=== PATIENT | female | born 1975 | race African-American/Black ===

== ENCOUNTER 2019-03-31 16:22 | Inpatient (IN) | payer OTHER ==
[~2019-03-31] VITALS: Ht 167.6 cm; Wt 92.5 kg
[~2019-03-31 16:22] MED LIST: AMLO10TA80 PO; LISI40TA4 PO
[2019-03-31] MEDS ORDERED: LORAZEPAM 2MG/ML CPJ ONE ×2 (16:28→16:47)
[2019-03-31] MEDS ORDERED: LORAZEPAM 2MG/ML CPJ IV ONE (16:45)
[2019-03-31] MEDS ORDERED: LEVETIRACETAM 500MG PREMIX 100 ML IV ONE ×2 (16:45)
[2019-03-31 17:22] LABS: HEMATOCRIT. 33.6 % (36.0-48.0); HEMOGLOBIN. 9.6 g/dL (12.0-16.0); MEAN CORPUSCULAR HEMOGLOBIN 17.5 pg (28.0-32.0); MEAN CORPUSCULAR VOLUME 61.1 fL (81.0-99.0); MEAN PLATELET VOLUME 8.5 fl (7.4-10.4); PLATELET 465 x1000/uL (130-400); RED CELL DISTRIBUTION WIDTH 22.1 % (11.6-14.6)
[2019-03-31 17:29] LABS: CHLORIDE 110 mEq/L (98-107)
[2019-03-31] MEDS ORDERED: DIPHENHYDRAMINE 50MG/ML VIAL IV ONE (17:30)
[2019-03-31 17:33] LABS: ETHANOL BLOOD 224 mg/dL
[2019-03-31 17:42] LABS: PLATELET ESTIMATE INCREASED
[2019-03-31 19:32] LABS: HCG SCREEN NEGATIVE
[2019-03-31] MEDS ORDERED: GUAIFENESIN 200MG/10ML SUGAR FREE UDC PO PRN (19:45)
[2019-03-31] MEDS ORDERED: LORAZEPAM 2MG/ML CPJ IV PRN (19:45)
[2019-03-31] MEDS ORDERED: IPRATROPIUM/ALBUTEROL 0.5-3(2.5)MG/3ML NEB HHN PRN (19:45)
[2019-03-31] MEDS ORDERED: ACETAMINOPHEN 325MG TABLET PO PRN (19:45)
[2019-03-31 20:01] LABS: PHOSPHORUS 3.1 mg/dL (2.5-4.9)
[2019-03-31] MEDS: DIPHENHYDRAMINE 50MG/ML VIAL IV PRN (21:33)
[2019-03-31] MEDS: ONDANSETRON HCL 4MG/2ML INJ IV PRN (21:33)
[2019-03-31] MEDS: SODIUM CHLORIDE 0.9% 1,000 ML IV SCH (21:49)
[2019-03-31] MEDS: ENOXAPARIN 40MG/0.4ML SYR SUBCUT SCH (21:53)
[2019-04-01] VITALS (11 sets, daily range): BP systolic 133–157; BP diastolic 61–104
[2019-04-01] MEDS: DIPHENHYDRAMINE 50MG/ML VIAL IV PRN ×2 (01:42→05:59)
[2019-04-01 03:10] LABS: CREATINE KINASE MB FRACTION 2.5 ng/mL (0.5-3.6)
[2019-04-01] MEDS: CLONIDINE 0.1MG TABLET PO PRN ×2 (03:19→22:12)
[2019-04-01] MEDS: ONDANSETRON HCL 4MG/2ML INJ IV PRN (04:20)
[2019-04-01 05:38] LABS: BASOPHILS % 0.4 % (0.0-2.0); HEMATOCRIT. 25.4 % (36.0-48.0); HEMOGLOBIN. 7.5 g/dL (12.0-16.0); LYMPHOCYTES % 35.9 % (20.0-50.0); MEAN CORPUSCULAR HEMOGLOBIN 17.8 pg (28.0-32.0); MEAN CORPUSCULAR VOLUME 60.2 fL (81.0-99.0); MEAN PLATELET VOLUME 9.3 fl (7.4-10.4); MONOCYTES % 8.6 % (2.0-8.0); NEUTROPHILS % 54.1 % (40.0-76.0); PLATELET 352 x1000/uL (130-400); RED BLOOD CELL COUNT 4.22 mill/uL (4.2-5.4); RED CELL DISTRIBUTION WIDTH 21.9 % (11.6-14.6)
[2019-04-01 06:23] LABS: CHLORIDE 113 mEq/L (98-107)
[2019-04-01 06:30] LABS: LDL CHOLESTEROL 35 mg/dL (5-100)
[2019-04-01 06:31] LABS: HDL CHOLESTEROL 53 mg/dL (40-59)
[2019-04-01] MEDS ORDERED: POTASSIUM CHLORIDE 20MEQ TABLET SR PO SCH (06:45)
[2019-04-01] MEDS: BLOOD SUGAR DIAGNOSTIC STRIP TEST SCH ×4 (06:50→21:00)
[2019-04-01] MEDS ORDERED: DEXTROSE 50% WATER 50ML SYRINGE IV PRN (07:00)
[2019-04-01] MEDS: INSULIN LISPRO 100 UNITS/ML SUBCUT SCH ×4 (07:20→21:00)
[2019-04-01] MEDS: SODIUM CHLORIDE 0.9% 1,000 ML IV SCH ×2 (08:10→20:36)
[2019-04-01] MEDS ORDERED: LEVETIRACETAM 500MG PREMIX 100 ML IV SCH ×2 (09:00)
[2019-04-01] MEDS ORDERED: LEVETIRACETAM 500MG TABLET PO SCH (09:23)
[2019-04-01] MEDS ORDERED: PHENOL/SODIUM PHENOLATE 1.4% SRPAY 177ML MM PRN (10:00)
[2019-04-01 11:35] LABS: CLARITY URINE CLEAR (CLEAR); COLOR URINE YELLOW (YELLOW); KETONES URINE NEGATIVE (NEGATIVE); LEUKOCYTE ESTERASE URINE NEGATIVE (NEGATIVE); NITRITE URINE NEGATIVE (NEGATIVE); OCCULT BLOOD URINE NEGATIVE (NEGATIVE); PH URINE 6.5 (4.5-8.0); PROTEIN URINE TRACE (NEGATIVE); SPECIFIC GRAVITY URINE 1.029 (1.005-1.030)
[2019-04-01 11:37] LABS: UCG SCREEN NEGATIVE
[2019-04-01 11:47] LABS: *AMPHETAMINES SCREEN URINE NEGATIVE (NEGATIVE); *BARBITURATES SCREEN URINE NEGATIVE (NEGATIVE); METHADONE URINE SCREEN NEGATIVE (NEGATIVE)
[2019-04-01 11:48] LABS: CANNABINOID URINE SCREEN NEGATIVE (NEGATIVE); OPIATES URINE SCREEN NEGATIVE (NEGATIVE); PHENCYCLIDINE URINE SCREEN NEGATIVE (NEGATIVE)
[2019-04-01 12:04] LABS: *COCAINE SCREEN URINE NEGATIVE (NEGATIVE)
[2019-04-01 12:10] LABS: *BENZODIAZEPINES SCREEN URINE PRESUMTIVE POSITIVE (NEGATIVE)
[2019-04-01] MEDS ORDERED: LEVETIRACETAM 500MG/5ML CUP PO NR (13:00)
[2019-04-01] MEDS: LORAZEPAM 2MG/ML CPJ IM PRN ×2 (13:00→22:13)
[2019-04-01] MEDS ORDERED: DIPHENHYDRAMINE 25MG CAPSULE PO PRN (14:45)
[2019-04-01] MEDS ORDERED: DIPHENHYDRAMINE 50MG/ML VIAL IV NR (15:15)
[2019-04-01] MEDS: HYDROCODONE/ACETAMINOPHEN 5/325MG TABLET PO PRN ×3 (15:54→23:37)
[2019-04-01 20:09] LABS: PLATELET ESTIMATE NORMAL
[2019-04-01] MEDS ORDERED: LAMOTRIGINE 25MG TABLET PO SCH (21:00)
[2019-04-01] MEDS ORDERED: LEVETIRACETAM 500MG/5ML CUP PO SCH (21:00)
[2019-04-01] MEDS: ENOXAPARIN 40MG/0.4ML SYR SUBCUT SCH (22:00)
== END 2019-04-01 22:40 | disposition left against medical advice (07) | DRG 53 ==
LOC: ER 16:22 → 3WST 17:07 → ENRESERV 22:00
PROVIDERS: ADMIT Internal Medicine; ATTEND Internal Medicine
DX: G40.901 Epilepsy, unspecified, not intractable, with status epilepticus (principal); S09.90XA Unspecified injury of head, initial encounter; E66.01 Morbid (severe) obesity due to excess calories; R13.10 Dysphagia, unspecified; S22.41XA Multiple fractures of ribs, right side, initial encounter for closed fracture; D64.9 Anemia, unspecified; E11.9 Type 2 diabetes mellitus without complications; I10 Essential (primary) hypertension; W18.39XA Other fall on same level, initial encounter; J45.909 Unspecified asthma, uncomplicated; Z82.49 Family history of ischemic heart disease and other diseases of the circulatory system; Y93.89 Activity, other specified; Y92.89 Other specified places as the place of occurrence of the external cause; Y99.8 Other external cause status; Z88.9 Allergy status to unspecified drugs, medicaments and biological substances; Z88.1 Allergy status to other antibiotic agents; Z88.0 Allergy status to penicillin; Z88.2 Allergy status to sulfonamides; Z88.8 Allergy status to other drugs, medicaments and biological substances; Z91.018 Allergy to other foods; Z79.899 Other long term (current) drug therapy; Z68.32 Body mass index [BMI] 32.0-32.9, adult
CPT/HCPCS: 36415; 71100; 80053; 80061; 80305; 80307; 80320; 80329; 81003; 81025; 82140; 82550; 82553; 82962; 83735; 84100; 84443; 84703; 85025; 93005; 93970; 96365; 96375; 96376; 99291; J1200; J1650; J1953; J2060; J2405; Q0163; G0480

== ENCOUNTER 2019-08-14 18:28 | Emergency (ER) | payer OTHER ==
[~2019-08-14] VITALS: Ht 170.2 cm; Wt 81.0 kg
[2019-08-14] MEDS ORDERED: LORAZEPAM 2MG/ML CPJ IV ONE (18:45)
[2019-08-14] MEDS ORDERED: LORAZEPAM 2MG/ML CPJ ONE (18:48)
[2019-08-14] MEDS ORDERED: SODIUM CHLORIDE 0.9% 1,000 ML IV ONE (20:41)
[2019-08-14] MEDS ORDERED: DIPHENHYDRAMINE 50MG/ML VIAL IV ONE (20:45)
[2019-08-14] MEDS ORDERED: METOCLOPRAMIDE HCL 10MG/2ML VIAL IV ONE (20:45)
[2019-08-14] MEDS ORDERED: LEVETIRACETAM 1000MG/100ML 100 ML IV ONE (20:45)
[2019-08-14 21:13] LABS: CHLORIDE 111 mEq/L (98-107)
[2019-08-14 21:17] LABS: ETHANOL BLOOD 15 mg/dL
[2019-08-14 21:51] LABS: HEMOGLOBIN. 10.4 g/dL (12.0-16.0); MEAN CORPUSCULAR HEMOGLOBIN 24.6 pg (28.0-32.0); MEAN CORPUSCULAR VOLUME 77.9 fL (81.0-99.0); MEAN PLATELET VOLUME 8.8 fl (7.4-10.4); PLATELET 208 x1000/uL (130-400); RED BLOOD CELL COUNT 4.24 mill/uL (4.2-5.4); RED CELL DISTRIBUTION WIDTH 31.8 % (11.6-14.6)
[2019-08-14 22:32] LABS: PLATELET ESTIMATE NORMAL
[2019-08-15 02:13] VITALS: BP 144/88
[2019-08-15] MEDS ORDERED: METO100T16 PO (23:45)
[2019-08-15] MEDS ORDERED: B25 PO (23:45)
[2019-08-15] MEDS ORDERED: CLON0.3T PO (23:45)
[2019-08-15] MEDS ORDERED: OXYC-515 PO (23:45)
[2019-08-15] MEDS ORDERED: KEPP500 PO (23:45)
[2019-08-15] MEDS ORDERED: LAMO50TA3 PO (23:45)
== END 2019-08-15 02:14 | disposition home or self-care (01) ==
LOC: ER 18:28
DX: G40.909 Epilepsy, unspecified, not intractable, without status epilepticus (principal); E11.9 Type 2 diabetes mellitus without complications; I10 Essential (primary) hypertension; F17.200 Nicotine dependence, unspecified, uncomplicated; Z71.6 Tobacco abuse counseling; Z88.0 Allergy status to penicillin; Z88.2 Allergy status to sulfonamides; Z88.6 Allergy status to analgesic agent; Z88.8 Allergy status to other drugs, medicaments and biological substances; Z91.018 Allergy to other foods
CPT/HCPCS: 36415; 70450; 80053; 80320; 82962; 85025; 96365; 96366; 96375; 99284; J1200; J1953; J2060; J2765; J7030; G0480

== ENCOUNTER 2019-08-15 12:05 | Inpatient (IN) | payer OTHER ==
[~2019-08-15] VITALS: Ht 165.1 cm; Wt 96.2 kg
[2019-08-15] MEDS ORDERED: SODIUM CHLORIDE 0.9% 1,000 ML IV ONE (12:27)
[2019-08-15] MEDS ORDERED: ONDANSETRON HCL 4MG/2ML INJ IV STA (12:27)
[2019-08-15] MEDS ORDERED: ACETAMINOPHEN 325MG TABLET PO ONE (12:30)
[2019-08-15 12:55] LABS: BASOPHILS % 0.8 % (0.0-2.0); EOSINOPHILS % 2.1 % (0.0-5.0); HEMATOCRIT. 33.1 % (36.0-48.0); HEMOGLOBIN. 10.5 g/dL (12.0-16.0); LYMPHOCYTES % 34.5 % (20.0-50.0); MEAN CORPUSCULAR HEMOGLOBIN 24.7 pg (28.0-32.0); MEAN PLATELET VOLUME 8.8 fl (7.4-10.4); MONOCYTES % 10.9 % (2.0-8.0); NEUTROPHILS % 51.7 % (40.0-76.0); PLATELET 235 x1000/uL (130-400); RED BLOOD CELL COUNT 4.24 mill/uL (4.2-5.4); RED CELL DISTRIBUTION WIDTH 32.1 % (11.6-14.6)
[2019-08-15 13:03] LABS: CHLORIDE 111 mEq/L (98-107)
[2019-08-15 13:07] LABS: ETHANOL BLOOD < 10 mg/dL
[2019-08-15 13:10] LABS: HCG SCREEN NEGATIVE
[2019-08-15] MEDS ORDERED: DIPHENHYDRAMINE 50MG/ML VIAL IV ONE (13:30)
[2019-08-15 14:19] LABS: PLATELET ESTIMATE NORMAL
[2019-08-15] MEDS ORDERED: LEVETIRACETAM 500MG PREMIX 100 ML IV NR (15:00)
[2019-08-15] MEDS ORDERED: MORPHINE SULFATE 4 MG/ML CPJ (NOT FOR IM USE) IV NR (15:15)
[2019-08-15] MEDS ORDERED: ONDANSETRON HCL 4MG/2ML INJ IV NR (15:15)
[2019-08-15 18:55] LABS: CLARITY URINE CLOUDY (CLEAR); COLOR URINE YELLOW (YELLOW); KETONES URINE TRACE (NEGATIVE); LEUKOCYTE ESTERASE URINE TRACE (NEGATIVE); NITRITE URINE NEGATIVE (NEGATIVE); OCCULT BLOOD URINE 3+ (NEGATIVE); PROTEIN URINE TRACE (NEGATIVE); SPECIFIC GRAVITY URINE 1.024 (1.005-1.030)
[2019-08-15 19:24] LABS: *AMPHETAMINES SCREEN URINE NEGATIVE (NEGATIVE); *BARBITURATES SCREEN URINE NEGATIVE (NEGATIVE); *COCAINE SCREEN URINE NEGATIVE (NEGATIVE); METHADONE URINE SCREEN NEGATIVE (NEGATIVE)
[2019-08-15 19:25] LABS: CANNABINOID URINE SCREEN NEGATIVE (NEGATIVE); PHENCYCLIDINE URINE SCREEN NEGATIVE (NEGATIVE)
[2019-08-15 19:31] LABS: *BENZODIAZEPINES SCREEN URINE PRESUMTIVE POSITIVE (NEGATIVE); OPIATES URINE SCREEN PRESUMTIVE POSITIVE (NEGATIVE)
[2019-08-15] MEDS: ONDANSETRON HCL 4MG/2ML INJ IV PRN (21:41)
[2019-08-15 21:50] VITALS: BP 163/98
[2019-08-15] MEDS ORDERED: ACETAMINOPHEN 325MG TABLET PO PRN (23:00)
[2019-08-15] MEDS ORDERED: HYDROCODONE/ACETAMINOPHEN 5/325MG TABLET PO PRN (23:00)
[2019-08-15] MEDS ORDERED: DOCUSATE SODIUM 100MG CAPSULE PO PRN (23:00)
[2019-08-15] MEDS ORDERED: ONDANSETRON HCL 4MG/2ML INJ IV PRN (23:00)
[2019-08-15] MEDS ORDERED: KEPP500 PO (23:45)
[2019-08-15] MEDS ORDERED: CLON0.3T PO (23:45)
[2019-08-15] MEDS ORDERED: B25 PO (23:45)
[2019-08-15] MEDS ORDERED: OXYC-515 PO (23:45)
[2019-08-15] MEDS ORDERED: LAMO50TA3 PO (23:45)
[2019-08-15] MEDS ORDERED: METO100T16 PO (23:45)
[2019-08-16] VITALS: BP 122/75
[2019-08-16] MEDS ORDERED: CLONIDINE 0.2MG TABLET PO PRN (00:15)
[2019-08-16] MEDS: SODIUM CHLORIDE 0.45% 1,000 ML IV SCH ×2 (01:25→14:48)
[2019-08-16] MEDS: LAMOTRIGINE 25MG TABLET PO SCH ×3 (01:25→21:08)
[2019-08-16] MEDS: DIPHENHYDRAMINE 50MG/ML VIAL IV PRN ×3 (01:45→14:47)
[2019-08-16] MEDS: LEVETIRACETAM 1,000 MG in SODIUM CHLORIDE 0.9% 100 ML IV SCH ×2 (03:26→21:09)
[2019-08-16] MEDS: TRAMADOL 50MG TABLET PO PRN ×2 (03:26→21:55)
[2019-08-16 05:23] LABS: CHLORIDE 110 mEq/L (98-107)
[2019-08-16 05:33] LABS: T4 FREE 0.82 ng/dL (0.76-1.46)
[2019-08-16 06:13] LABS: BASOPHILS % 0.4 % (0.0-2.0); EOSINOPHILS % 2.2 % (0.0-5.0); HEMATOCRIT. 30.8 % (36.0-48.0); HEMOGLOBIN. 9.7 g/dL (12.0-16.0); LYMPHOCYTES % 37.2 % (20.0-50.0); MEAN CORPUSCULAR HEMOGLOBIN 24.7 pg (28.0-32.0); MEAN CORPUSCULAR VOLUME 78.4 fL (81.0-99.0); MONOCYTES % 8.1 % (2.0-8.0); NEUTROPHILS % 52.1 % (40.0-76.0); PLATELET 205 x1000/uL (130-400); RED BLOOD CELL COUNT 3.93 mill/uL (4.2-5.4); RED CELL DISTRIBUTION WIDTH 32.1 % (11.6-14.6)
[2019-08-16 07:50] VITALS: BP 148/92
[2019-08-16] MEDS: LISINOPRIL 20MG TABLET PO SCH (08:46)
[2019-08-16] MEDS: ENOXAPARIN 40MG/0.4ML SYR SUBCUT SCH ×2 (08:46→08:47)
[2019-08-16] MEDS ORDERED: LEVETIRACETAM 500MG TABLET PO SCH (09:00)
[2019-08-16] MEDS ORDERED: METOPROLOL TARTRATE 50MG TABLET PO SCH (09:00)
[2019-08-16 11:40] VITALS: BP 120/77
[2019-08-16 16:06] VITALS: BP 144/86
[2019-08-16] MEDS: FAMOTIDINE 20MG/2ML VIAL IV SCH (16:38)
[2019-08-16 20:08] VITALS: BP 131/84
[2019-08-16] MEDS: HYDRALAZINE HCL 50MG TABLET PO SCH (21:08)
[2019-08-17 00:17] VITALS: BP 121/83
[2019-08-17] MEDS: SODIUM CHLORIDE 0.45% 1,000 ML IV SCH (02:55)
[2019-08-17 04:36] VITALS: BP 128/82
[2019-08-17 08:00] VITALS: BP 136/87
[2019-08-17 08:02] LABS: BASOPHILS % 0.8 % (0.0-2.0); EOSINOPHILS % 1.4 % (0.0-5.0); HEMATOCRIT. 31.4 % (36.0-48.0); HEMOGLOBIN. 9.9 g/dL (12.0-16.0); MEAN CORPUSCULAR HEMOGLOBIN 24.6 pg (28.0-32.0); MEAN CORPUSCULAR VOLUME 78.4 fL (81.0-99.0); MEAN PLATELET VOLUME 8.9 fl (7.4-10.4); MONOCYTES % 4.5 % (2.0-8.0); NEUTROPHILS % 75.3 % (40.0-76.0); PLATELET 189 x1000/uL (130-400); RED CELL DISTRIBUTION WIDTH 31.9 % (11.6-14.6)
[2019-08-17 08:15] LABS: CHLORIDE 107 mEq/L (98-107)
[2019-08-17] MEDS: LISINOPRIL 20MG TABLET PO SCH (09:00)
[2019-08-17] MEDS: LAMOTRIGINE 25MG TABLET PO SCH ×2 (09:47→21:59)
[2019-08-17] MEDS: FAMOTIDINE 20MG/2ML VIAL IV SCH (09:48)
[2019-08-17] MEDS: LEVETIRACETAM 1,000 MG in SODIUM CHLORIDE 0.9% 100 ML IV SCH ×2 (09:48→22:00)
[2019-08-17] MEDS: HYDRALAZINE HCL 50MG TABLET PO SCH ×2 (09:48→21:59)
[2019-08-17] MEDS: ENOXAPARIN 30MG/0.3ML SYR SUBCUT SCH ×2 (09:51→21:59)
[2019-08-17] MEDS ORDERED: DIPHENHYDRAMINE 50MG/ML VIAL IV NR (11:30)
[2019-08-17 12:00] VITALS: BP 113/74
[2019-08-17] MEDS: TRAMADOL 50MG TABLET PO PRN ×2 (12:09→23:57)
[2019-08-17] MEDS: ONDANSETRON HCL 4MG/2ML INJ IV PRN (13:39)
[2019-08-17 16:30] VITALS: BP 171/102
[2019-08-17] MEDS: CLONIDINE 0.1MG TABLET PO PRN (16:54)
[2019-08-17] MEDS: LORAZEPAM 2MG/ML CPJ IV PRN ×2 (17:35→23:57)
[2019-08-17 20:00] VITALS: BP 157/88
[2019-08-18] VITALS: BP 178/100
[2019-08-18] MEDS: CLONIDINE 0.1MG TABLET PO PRN (02:50)
[2019-08-18 04:00] VITALS: BP 166/93
[2019-08-18] MEDS: LORAZEPAM 2MG/ML CPJ IV PRN (05:58)
[2019-08-18] MEDS: TRAMADOL 50MG TABLET PO PRN (05:59)
[2019-08-18 08:00] VITALS: BP 175/103
[2019-08-18] MEDS: LEVETIRACETAM 1,000 MG in SODIUM CHLORIDE 0.9% 100 ML IV SCH (09:10)
[2019-08-18] MEDS: FAMOTIDINE 20MG/2ML VIAL IV SCH (09:10)
[2019-08-18] MEDS: LISINOPRIL 20MG TABLET PO SCH (09:11)
[2019-08-18] MEDS: HYDRALAZINE HCL 50MG TABLET PO SCH (09:11)
[2019-08-18] MEDS: LAMOTRIGINE 25MG TABLET PO SCH (09:11)
[2019-08-18] MEDS: ENOXAPARIN 30MG/0.3ML SYR SUBCUT SCH (09:12)
[2019-08-18 12:00] VITALS: BP 169/97
[2019-08-18] MEDS ORDERED: LEVETIRACETAM 500MG TABLET PO SCH ×2 (12:00→21:00)
[2019-08-18] MEDS ORDERED: TRAZ-251 PO (12:01)
[2019-08-18] MEDS ORDERED: LAM25 PO (12:01)
[2019-08-18] MEDS ORDERED: AMLO5TAB4 MT (12:01)
[2019-08-18] MEDS ORDERED: METO-539 MT (12:01)
[2019-08-18] MEDS ORDERED: LEVE1000 MT (12:01)
[2019-08-18] MEDS ORDERED: HYDR-4135 PO (12:01)
[2019-08-18] MEDS ORDERED: LORAZEPAM 2MG/ML CPJ IM PRN (13:14)
[2019-08-18] MEDS ORDERED: ALPRAZOLAM 0.5 MG TABLET PO PRN (13:15)
[2019-08-18] MEDS ORDERED: HYDRALAZINE HCL 50MG TABLET PO SCH (14:00)
[2019-08-18 14:48] VITALS: BP 153/86
[2019-08-18 14:57] VITALS: BP 153/86
[2019-08-18] MEDS ORDERED: AMLODIPINE 5MG TABLET PO SCH (21:00)
[2019-08-21 09:09] LABS: LAMOTIGINE (LAMICTAL) None Detected ug/mL (2.0-20.0)
[2019-08-23 19:11] LABS: LEVETIRACETAM / KEPPRA 9.5 ug/mL (10.0-40.0)
== END 2019-08-18 15:15 | disposition home or self-care (01) | DRG 53 ==
LOC: ER 12:05 → EDBEDREQ 13:46 → EDBEDREQTM 13:46 → 6WST 19:28 → EDBEDREQTM 19:37 → EDBEDREQ 19:37 → ENRESERV 21:01
PROVIDERS: ADMIT Internal Medicine; ATTEND Internal Medicine
DX: G40.909 Epilepsy, unspecified, not intractable, without status epilepticus (principal); D64.9 Anemia, unspecified; E86.0 Dehydration; D72.819 Decreased white blood cell count, unspecified; E11.9 Type 2 diabetes mellitus without complications; K52.9 Noninfective gastroenteritis and colitis, unspecified; F17.210 Nicotine dependence, cigarettes, uncomplicated; I10 Essential (primary) hypertension; N83.209 Unspecified ovarian cyst, unspecified side; F32.9 Major depressive disorder, single episode, unspecified; T42.76XA Underdosing of unspecified antiepileptic and sedative-hypnotic drugs, initial encounter; F41.9 Anxiety disorder, unspecified; Z60.2 Problems related to living alone; Z90.49 Acquired absence of other specified parts of digestive tract; Z91.19 Patient's noncompliance with other medical treatment and regimen; Z98.84 Bariatric surgery status; Z59.0 Homelessness; Z87.81 Personal history of (healed) traumatic fracture; Z91.128 Patient's intentional underdosing of medication regimen for other reason; Y92.89 Other specified places as the place of occurrence of the external cause; Z79.899 Other long term (current) drug therapy; Z88.0 Allergy status to penicillin; Z88.8 Allergy status to other drugs, medicaments and biological substances; Z91.018 Allergy to other foods
CPT/HCPCS: 36415; 71045; 74176; 80048; 80053; 80305; 80320; 81003; 82542; 82962; 84439; 84443; 84703; 85025; 93005; 95816; 99285; J1200; J1650; J1953; J2060; J2270; J2405; J3490; J7030; J7050; G0480

== ENCOUNTER 2019-08-23 16:26 | Emergency (ER) | payer OTHER ==
[~2019-08-23] VITALS: Ht 170.2 cm; Wt 82.0 kg
[~2019-08-23 16:26] MED LIST changes: -AMLO10TA80 PO; +AMLO5TAB4 MT; +B25 PO; +HYDR-4135 PO; +LAM25 PO; +LAMO50TA3 PO; +LEVE1000 MT; -LISI40TA4 PO; +METO-539 MT; +OXYC-515 PO; +TRAZ-251 PO
[2019-08-23] MEDS ORDERED: ONDANSETRON HCL 4MG/2ML INJ IV STA (17:09)
[2019-08-23] MEDS ORDERED: LEVETIRACETAM 500MG PREMIX 100 ML IV ONE (17:15)
[2019-08-23 18:04] LABS: BASOPHILS % 0.9 % (0.0-2.0); EOSINOPHILS % 1.4 % (0.0-5.0); HEMATOCRIT. 32.5 % (36.0-48.0); HEMOGLOBIN. 10.3 g/dL (12.0-16.0); LYMPHOCYTES % 31.8 % (20.0-50.0); MEAN CORPUSCULAR HEMOGLOBIN 24.7 pg (28.0-32.0); MEAN CORPUSCULAR VOLUME 78.3 fL (81.0-99.0); MEAN PLATELET VOLUME 8.9 fl (7.4-10.4); MONOCYTES % 10.5 % (2.0-8.0); NEUTROPHILS % 55.4 % (40.0-76.0); PLATELET 279 x1000/uL (130-400); RED BLOOD CELL COUNT 4.15 mill/uL (4.2-5.4); RED CELL DISTRIBUTION WIDTH 31.1 % (11.6-14.6)
[2019-08-23 18:08] LABS: CHLORIDE 108 mEq/L (98-107)
[2019-08-23 18:12] LABS: ETHANOL BLOOD < 10 mg/dL
[2019-08-23] MEDS ORDERED: DIPHENHYDRAMINE 50MG/ML VIAL IV ONE (18:30)
[2019-08-23] MEDS ORDERED: HYDROCODONE/ACETAMINOPHEN 5/325MG TABLET PO ONE (18:30)
[2019-08-23 19:00] VITALS: BP 132/76
[2019-08-23 19:55] LABS: PLATELET ESTIMATE NORMAL
== END 2019-08-23 19:01 | disposition home or self-care (01) ==
LOC: ER 16:26
DX: Z76.5 Malingerer [conscious simulation] (principal); R56.9 Unspecified convulsions; D50.9 Iron deficiency anemia, unspecified; I11.9 Hypertensive heart disease without heart failure; E11.9 Type 2 diabetes mellitus without complications; Z88.0 Allergy status to penicillin; Z88.2 Allergy status to sulfonamides; Z88.6 Allergy status to analgesic agent; Z88.8 Allergy status to other drugs, medicaments and biological substances; Z85.07 Personal history of malignant neoplasm of pancreas; Z91.018 Allergy to other foods
CPT/HCPCS: 36415; 80053; 80320; 85025; 96374; 96375; 99284; J1200; J1953; J2405; G0480

== ENCOUNTER 2019-10-08 10:48 | Emergency (ER) | payer OTHER ==
[~2019-10-08] VITALS: Ht 165.1 cm; Wt 92.0 kg
[2019-10-08] MEDS ORDERED: LEVETIRACETAM 1000MG/100ML 100 ML IV ONE (11:00)
[2019-10-08] MEDS ORDERED: KETOROLAC 30MG/ML VIAL IV STA (11:00)
[2019-10-08] MEDS ORDERED: ONDANSETRON HCL 4MG/2ML INJ IV STA (11:00)
[2019-10-08 11:40] LABS: CHLORIDE 111 mEq/L (98-107)
[2019-10-08 11:43] LABS: BASOPHILS % 0.9 % (0.0-2.0); EOSINOPHILS % 2.7 % (0.0-5.0); HEMATOCRIT. 32.5 % (36.0-48.0); LYMPHOCYTES % 25.8 % (20.0-50.0); MEAN CORPUSCULAR HEMOGLOBIN 24.1 pg (28.0-32.0); MEAN CORPUSCULAR VOLUME 77.9 fL (81.0-99.0); MEAN PLATELET VOLUME 8.6 fl (7.4-10.4); MONOCYTES % 14.8 % (2.0-8.0); NEUTROPHILS % 55.8 % (40.0-76.0); PLATELET 279 x1000/uL (130-400); RED BLOOD CELL COUNT 4.17 mill/uL (4.2-5.4); RED CELL DISTRIBUTION WIDTH 24.6 % (11.6-14.6)
[2019-10-08 11:44] LABS: ETHANOL BLOOD 20 mg/dL
[2019-10-08] MEDS ORDERED: DIPHENHYDRAMINE 50MG/ML VIAL IV ONE (11:45)
[2019-10-08] MEDS: ACETAMINOPHEN WITH CODEINE 300/30MG TABLET PO ONE ×2 (12:03→13:22)
[2019-10-08 12:05] LABS: PLATELET ESTIMATE NORMAL
[2019-10-08 12:30] LABS: CLARITY URINE CLOUDY (CLEAR); COLOR URINE YELLOW (YELLOW); KETONES URINE NEGATIVE (NEGATIVE); LEUKOCYTE ESTERASE URINE 2+ (NEGATIVE); NITRITE URINE NEGATIVE (NEGATIVE); OCCULT BLOOD URINE NEGATIVE (NEGATIVE); PROTEIN URINE NEGATIVE (NEGATIVE); SPECIFIC GRAVITY URINE 1.018 (1.005-1.030)
[2019-10-08 13:22] VITALS: BP 157/83
[2019-10-08 20:49] LABS: *AMPHETAMINES SCREEN URINE NEGATIVE (NEGATIVE); *BARBITURATES SCREEN URINE NEGATIVE (NEGATIVE); *COCAINE SCREEN URINE NEGATIVE (NEGATIVE); METHADONE URINE SCREEN NEGATIVE (NEGATIVE)
[2019-10-08 20:50] LABS: CANNABINOID URINE SCREEN NEGATIVE (NEGATIVE); PHENCYCLIDINE URINE SCREEN NEGATIVE (NEGATIVE)
[2019-10-08 21:02] LABS: *BENZODIAZEPINES SCREEN URINE PRESUMTIVE POSITIVE (NEGATIVE); OPIATES URINE SCREEN PRESUMTIVE POSITIVE (NEGATIVE)
== END 2019-10-08 14:00 | disposition home or self-care (01) ==
LOC: ER 10:48
DX: G40.909 Epilepsy, unspecified, not intractable, without status epilepticus (principal); N39.0 Urinary tract infection, site not specified; E11.9 Type 2 diabetes mellitus without complications; I11.9 Hypertensive heart disease without heart failure; Z91.018 Allergy to other foods; Z88.6 Allergy status to analgesic agent; Z88.0 Allergy status to penicillin; Z88.2 Allergy status to sulfonamides
CPT/HCPCS: 36415; 80053; 80305; 80320; 81003; 82962; 85025; 87077; 87086; 87186; 96365; 96375; 99284; J1200; J1953; J2405; J1885; G0480

== ENCOUNTER 2019-10-08 16:01 | Emergency (ER) | payer OTHER ==
[~2019-10-08] VITALS: Ht 165.1 cm; Wt 80.0 kg
[2019-10-08 16:36] VITALS: BP 146/89
[2019-10-08] MEDS ORDERED: LORAZEPAM 0.5MG TABLET PO ONE (17:00)
== END 2019-10-08 17:34 | disposition home or self-care (01) ==
LOC: ER 16:01
DX: F41.9 Anxiety disorder, unspecified (principal); I10 Essential (primary) hypertension; G40.909 Epilepsy, unspecified, not intractable, without status epilepticus; Z88.6 Allergy status to analgesic agent; Z88.0 Allergy status to penicillin; Z88.2 Allergy status to sulfonamides; Z91.018 Allergy to other foods; Z90.49 Acquired absence of other specified parts of digestive tract; Z98.51 Tubal ligation status
CPT/HCPCS: 93005; 99283

== ENCOUNTER 2019-11-07 23:34 | Emergency (ER) | payer OTHER ==
[~2019-11-07] VITALS: Ht 172.7 cm; Wt 79.0 kg
[2019-11-08] MEDS ORDERED: ONDANSETRON HCL 4MG/2ML INJ IV STA (00:04)
[2019-11-08] MEDS ORDERED: SODIUM CHLORIDE 0.9% 1,000 ML IV ONE (00:04)
[2019-11-08 00:56] LABS: CHLORIDE 109 mEq/L (98-107)
[2019-11-08 01:01] LABS: ETHANOL BLOOD 85 mg/dL
[2019-11-08 01:02] LABS: BASOPHILS % 0.5 % (0.0-2.0); HEMATOCRIT. 31.8 % (36.0-48.0); HEMOGLOBIN. 9.9 g/dL (12.0-16.0); LYMPHOCYTES % 31.9 % (20.0-50.0); MEAN CORPUSCULAR HEMOGLOBIN 24.1 pg (28.0-32.0); MEAN CORPUSCULAR VOLUME 77.5 fL (81.0-99.0); MEAN PLATELET VOLUME 8.5 fl (7.4-10.4); MONOCYTES % 9.6 % (2.0-8.0); PLATELET 279 x1000/uL (130-400); RED BLOOD CELL COUNT 4.11 mill/uL (4.2-5.4); RED CELL DISTRIBUTION WIDTH 22.2 % (11.6-14.6)
[2019-11-08 01:09] LABS: HCG SCREEN NEGATIVE
[2019-11-08] MEDS ORDERED: NALOXONE HCL 1 MG/ML 2ML VIAL IV NR (01:15)
[2019-11-08 01:45] LABS: CLARITY URINE CLEAR (CLEAR); COLOR URINE YELLOW (YELLOW); KETONES URINE NEGATIVE (NEGATIVE); LEUKOCYTE ESTERASE URINE NEGATIVE (NEGATIVE); NITRITE URINE NEGATIVE (NEGATIVE); OCCULT BLOOD URINE NEGATIVE (NEGATIVE); PROTEIN URINE TRACE (NEGATIVE); SPECIFIC GRAVITY URINE 1.017 (1.005-1.030)
[2019-11-08 01:55] LABS: *COCAINE SCREEN URINE NEGATIVE (NEGATIVE)
[2019-11-08 01:56] LABS: *AMPHETAMINES SCREEN URINE NEGATIVE (NEGATIVE); *BARBITURATES SCREEN URINE NEGATIVE (NEGATIVE); CANNABINOID URINE SCREEN NEGATIVE (NEGATIVE); METHADONE URINE SCREEN NEGATIVE (NEGATIVE); PHENCYCLIDINE URINE SCREEN NEGATIVE (NEGATIVE)
[2019-11-08 01:59] LABS: *BENZODIAZEPINES SCREEN URINE PRESUMTIVE POSITIVE (NEGATIVE); OPIATES URINE SCREEN PRESUMTIVE POSITIVE (NEGATIVE)
[2019-11-08 06:00] VITALS: BP 137/85
== END 2019-11-08 07:14 | disposition home or self-care (01) ==
LOC: ER 23:45
DX: T50.911A Poisoning by multiple unspecified drugs, medicaments and biological substances, accidental (unintentional), initial encounter (principal); Y92.9 Unspecified place or not applicable; J45.909 Unspecified asthma, uncomplicated; I10 Essential (primary) hypertension; R56.9 Unspecified convulsions; F17.200 Nicotine dependence, unspecified, uncomplicated; Z88.0 Allergy status to penicillin; Z88.2 Allergy status to sulfonamides; Z88.6 Allergy status to analgesic agent; Z88.8 Allergy status to other drugs, medicaments and biological substances; Z91.018 Allergy to other foods
CPT/HCPCS: 36415; 70450; 80053; 80305; 80320; 81003; 82140; 83690; 84484; 84703; 85025; 93005; 99285; J2405; J7030; G0480

== ENCOUNTER 2019-11-11 02:44 | Emergency (ER) | payer OTHER ==
[~2019-11-11] VITALS: Ht 167.6 cm; Wt 114.0 kg
[2019-11-11] MEDS ORDERED: ONDANSETRON HCL 4MG/2ML INJ IV STA (03:54)
[2019-11-11] MEDS ORDERED: LORAZEPAM 2MG/ML CPJ IV ONE (04:00)
[2019-11-11] MEDS ORDERED: LEVETIRACETAM 500MG PREMIX 100 ML IV ONE (04:00)
[2019-11-11 04:22] LABS: BASOPHILS % 1.5 % (0.0-2.0); EOSINOPHILS % 2.3 % (0.0-5.0); HEMATOCRIT. 32.3 % (36.0-48.0); HEMOGLOBIN. 10.1 g/dL (12.0-16.0); LYMPHOCYTES % 39.7 % (20.0-50.0); MEAN CORPUSCULAR HEMOGLOBIN 23.7 pg (28.0-32.0); MONOCYTES % 9.2 % (2.0-8.0); NEUTROPHILS % 47.3 % (40.0-76.0); PLATELET 304 x1000/uL (130-400); RED BLOOD CELL COUNT 4.25 mill/uL (4.2-5.4); RED CELL DISTRIBUTION WIDTH 22.4 % (11.6-14.6)
[2019-11-11 04:29] LABS: CHLORIDE 111 mEq/L (98-107)
[2019-11-11 05:01] LABS: PLATELET ESTIMATE NORMAL
[2019-11-11 07:30] VITALS: BP 134/89
== END 2019-11-11 07:32 | disposition home or self-care (01) ==
LOC: ER 03:17
DX: R56.9 Unspecified convulsions (principal); R11.2 Nausea with vomiting, unspecified; E11.9 Type 2 diabetes mellitus without complications; I10 Essential (primary) hypertension; F17.290 Nicotine dependence, other tobacco product, uncomplicated; Z79.899 Other long term (current) drug therapy; Z88.2 Allergy status to sulfonamides; Z88.0 Allergy status to penicillin; Z88.6 Allergy status to analgesic agent; Z88.8 Allergy status to other drugs, medicaments and biological substances
CPT/HCPCS: 36415; 80053; 85025; 93005; 96365; 96366; 96375; 99284; J1953; J2060; J2405

== ENCOUNTER 2019-12-11 13:48 | Emergency (ER) | payer OTHER ==
[~2019-12-11] VITALS: Ht 172.7 cm; Wt 116.0 kg
[2019-12-11] MEDS ORDERED: LEVETIRACETAM 1000MG PREMIX 100 ML IV ONE (14:45)
[2019-12-11] MEDS ORDERED: DEXTROSE 50% WATER 50ML SYRINGE IV ONE (14:45)
[2019-12-11] MEDS ORDERED: SODIUM CHLORIDE 0.9% 1,000 ML IV ONE (14:45)
[2019-12-11 15:04] LABS: BASOPHILS % 0.9 % (0.0-2.0); EOSINOPHILS % 1.8 % (0.0-5.0); HEMATOCRIT. 30.7 % (36.0-48.0); LYMPHOCYTES % 27.6 % (20.0-50.0); MEAN CORPUSCULAR HEMOGLOBIN 22.7 pg (28.0-32.0); MEAN CORPUSCULAR VOLUME 77.2 fL (81.0-99.0); MEAN PLATELET VOLUME 8.6 fl (7.4-10.4); MONOCYTES % 8.1 % (2.0-8.0); NEUTROPHILS % 61.6 % (40.0-76.0); PLATELET 257 x1000/uL (130-400); RED BLOOD CELL COUNT 3.97 mill/uL (4.2-5.4); RED CELL DISTRIBUTION WIDTH 21.3 % (11.6-14.6)
[2019-12-11] MEDS ORDERED: GLUCAGON,HUMAN RECOMBINANT 1MG/VIAL IM ONE (15:30)
[2019-12-11 16:11] LABS: CHLORIDE 110 mEq/L (98-107)
[2019-12-11 16:14] LABS: INR 0.9; PROTHROMBIN TIME 9.7 sec (9.6-11.0)
[2019-12-11 16:16] LABS: ETHANOL BLOOD < 10 mg/dL
[2019-12-11] MEDS ORDERED: ONDANSETRON HCL 4MG/2ML INJ IV ONE (20:15)
[2019-12-11] MEDS ORDERED: DIPHENHYDRAMINE 25MG CAPSULE PO ONE (20:15)
[2019-12-11] MEDS ORDERED: MORPHINE SULFATE 2 MG/ML CPJ (NOT FOR IM USE) IV PRN (21:45)
[2019-12-11] MEDS ORDERED: ONDANSETRON HCL 4MG/2ML INJ IV PRN (21:45)
[2019-12-11] MEDS ORDERED: DIPHENHYDRAMINE 50MG/ML VIAL IV PRN (21:45)
[2019-12-12 01:00] VITALS: BP 160/98
== END 2019-12-12 01:05 | disposition short-term general hospital (02) ==
LOC: ER 13:56 → EDBEDREQ 17:18 → SUPCPDRO 18:54 → CANRESERV 22:23 → ENRESERV 22:23 → CANBEDREQ 23:38 → ER 12-12 01:05
DX: G40.909 Epilepsy, unspecified, not intractable, without status epilepticus (principal); E11.649 Type 2 diabetes mellitus with hypoglycemia without coma; I10 Essential (primary) hypertension; Z59.0 Homelessness; Z88.0 Allergy status to penicillin; Z88.1 Allergy status to other antibiotic agents; Z88.2 Allergy status to sulfonamides; Z88.6 Allergy status to analgesic agent; Z88.8 Allergy status to other drugs, medicaments and biological substances; Z90.49 Acquired absence of other specified parts of digestive tract; Z98.84 Bariatric surgery status
CPT/HCPCS: 36415; 70450; 71045; 80053; 80320; 82140; 82962; 83690; 83735; 84484; 85025; 85610; 93005; 96365; 96366; 96375; 99285; J1200; J1953; J2270; J2405; J7030; Z7610; J1610; G0480

== ENCOUNTER 2019-12-26 11:55 | Emergency (ER) | payer OTHER ==
[~2019-12-26] VITALS: Ht 175.3 cm; Wt 91.0 kg
[2019-12-26 12:24] VITALS: BP 157/85
[2019-12-26] MEDS ORDERED: DIPHENHYDRAMINE 50MG/ML VIAL IV ONE (13:00)
[2019-12-26] MEDS ORDERED: SODIUM CHLORIDE 0.9% 1,000 ML IV ONE (13:00)
[2019-12-26] MEDS ORDERED: METOCLOPRAMIDE HCL 10MG/2ML VIAL IV ONE (13:00)
[2019-12-26] MEDS ORDERED: LEVETIRACETAM 500MG PREMIX 100 ML IV ONE (13:00)
[2019-12-26 13:49] LABS: *COCAINE SCREEN URINE NEGATIVE (NEGATIVE)
[2019-12-26 13:50] LABS: CLARITY URINE CLEAR (CLEAR); COLOR URINE YELLOW (YELLOW); KETONES URINE NEGATIVE (NEGATIVE); LEUKOCYTE ESTERASE URINE NEGATIVE (NEGATIVE); NITRITE URINE NEGATIVE (NEGATIVE); OCCULT BLOOD URINE 3+ (NEGATIVE); PH URINE 8.5 (4.5-8.0); PROTEIN URINE NEGATIVE (NEGATIVE); SPECIFIC GRAVITY URINE 1.008 (1.005-1.030)
[2019-12-26 13:51] LABS: *AMPHETAMINES SCREEN URINE NEGATIVE (NEGATIVE); *BARBITURATES SCREEN URINE NEGATIVE (NEGATIVE); *BENZODIAZEPINES SCREEN URINE NEGATIVE (NEGATIVE); CANNABINOID URINE SCREEN NEGATIVE (NEGATIVE); METHADONE URINE SCREEN NEGATIVE (NEGATIVE); PHENCYCLIDINE URINE SCREEN NEGATIVE (NEGATIVE)
[2019-12-26 13:54] LABS: OPIATES URINE SCREEN PRESUMTIVE POSITIVE (NEGATIVE)
[2019-12-26 14:38] LABS: BASOPHILS % 0.8 % (0.0-2.0); EOSINOPHILS % 0.6 % (0.0-5.0); HEMATOCRIT. 30.1 % (36.0-48.0); HEMOGLOBIN. 9.4 g/dL (12.0-16.0); LYMPHOCYTES % 19.3 % (20.0-50.0); MEAN CORPUSCULAR HEMOGLOBIN 22.6 pg (28.0-32.0); MEAN CORPUSCULAR VOLUME 71.9 fL (81.0-99.0); MEAN PLATELET VOLUME 8.4 fl (7.4-10.4); MONOCYTES % 6.6 % (2.0-8.0); NEUTROPHILS % 72.7 % (40.0-76.0); PLATELET 374 x1000/uL (130-400); RED BLOOD CELL COUNT 4.19 mill/uL (4.2-5.4); RED CELL DISTRIBUTION WIDTH 21.3 % (11.6-14.6)
[2019-12-26 14:44] LABS: HCG SCREEN NEGATIVE
[2019-12-26 14:46] LABS: CHLORIDE 107 mEq/L (98-107)
[2019-12-26 14:50] LABS: ETHANOL BLOOD < 10 mg/dL
== END 2019-12-26 16:10 | disposition home or self-care (01) ==
LOC: ER 11:55
DX: R51.9 Headache, unspecified (principal); H70.10 Chronic mastoiditis, unspecified ear; R56.9 Unspecified convulsions; I10 Essential (primary) hypertension; E11.9 Type 2 diabetes mellitus without complications; F41.9 Anxiety disorder, unspecified; Z88.0 Allergy status to penicillin; Z88.2 Allergy status to sulfonamides; Z88.6 Allergy status to analgesic agent; Z88.8 Allergy status to other drugs, medicaments and biological substances; Z91.018 Allergy to other foods; Z91.048 Other nonmedicinal substance allergy status
CPT/HCPCS: 36415; 70450; 71045; 80053; 80305; 80320; 81003; 81025; 84703; 85025; 93005; 96365; 96375; 99285; J1200; J1953; J2765; J7030; G0480

== ENCOUNTER 2020-03-20 07:54 | Emergency (ER) | payer OTHER ==
[~2020-03-20] VITALS: Ht 167.6 cm; Wt 107.0 kg
[~2020-03-20 07:54] MED LIST changes: -OXYC-515 PO; +OXYC1TAB12 PO
[2020-03-20] MEDS ORDERED: LEVETIRACETAM 1000MG PREMIX 100 ML IV ONE (08:15)
[2020-03-20 09:33] LABS: BASOPHILS % 0.8 % (0.0-2.0); EOSINOPHILS % 2.4 % (0.0-5.0); HEMATOCRIT. 28.5 % (36.0-48.0); HEMOGLOBIN. 8.5 g/dL (12.0-16.0); LYMPHOCYTES % 30.5 % (20.0-50.0); MEAN CORPUSCULAR HEMOGLOBIN 19.6 pg (28.0-32.0); MEAN CORPUSCULAR VOLUME 65.8 fL (81.0-99.0); MEAN PLATELET VOLUME 7.6 fl (7.4-10.4); MONOCYTES % 11.2 % (2.0-8.0); NEUTROPHILS % 55.1 % (40.0-76.0); PLATELET 459 x1000/uL (130-400); RED BLOOD CELL COUNT 4.34 mill/uL (4.2-5.4); RED CELL DISTRIBUTION WIDTH 21.9 % (11.6-14.6)
[2020-03-20 09:40] LABS: CHLORIDE 107 mEq/L (98-107)
[2020-03-20 09:43] LABS: ETHANOL BLOOD < 10 mg/dL
[2020-03-20 09:44] VITALS: BP 128/85
[2020-03-20 09:44] LABS: HCG SCREEN NEGATIVE
[2020-03-20 10:14] LABS: PLATELET ESTIMATE INCREASED
== END 2020-03-20 12:00 | disposition home or self-care (01) ==
LOC: ER 07:54
DX: G40.909 Epilepsy, unspecified, not intractable, without status epilepticus (principal); E11.9 Type 2 diabetes mellitus without complications; I10 Essential (primary) hypertension; F41.9 Anxiety disorder, unspecified; F20.9 Schizophrenia, unspecified; Z86.73 Personal history of transient ischemic attack (TIA), and cerebral infarction without residual deficits; Z88.6 Allergy status to analgesic agent; Z88.1 Allergy status to other antibiotic agents; Z88.2 Allergy status to sulfonamides; Z88.0 Allergy status to penicillin
CPT/HCPCS: 36415; 70450; 71045; 80053; 80320; 84703; 85025; 93005; 96365; 99285; J1953; Z7610; G0480

== ENCOUNTER 2020-04-25 17:50 | Emergency (ER) | payer OTHER ==
[~2020-04-25] VITALS: Ht 175.3 cm; Wt 99.8 kg
[2020-04-25] MEDS ORDERED: LEVETIRACETAM 1000MG PREMIX 100 ML IV ONE (18:15)
[2020-04-25] MEDS ORDERED: SODIUM CHLORIDE 0.9% 1,000 ML IV ONE (18:15)
[2020-04-25] MEDS ORDERED: LORAZEPAM 2MG/ML CPJ IV ONE (18:15)
[2020-04-25] MEDS ORDERED: ONDANSETRON HCL 4MG/2ML INJ IV ONE (18:30)
[2020-04-25] MEDS ORDERED: DIPHENHYDRAMINE 25MG CAPSULE PO ONE (19:45)
[2020-04-25] MEDS ORDERED: ONDANSETRON HCL 4MG/2ML INJ IV STA (19:52)
[2020-04-25] MEDS ORDERED: MORPHINE SULFATE 4 MG/ML CPJ (NOT FOR IM USE) IV STA (19:52)
[2020-04-25] MEDS ORDERED: DIPHENHYDRAMINE 50MG/ML VIAL IV ONE (20:00)
[2020-04-25 20:30] LABS: BASOPHILS % 0.8 % (0.0-2.0); EOSINOPHILS % 0.5 % (0.0-5.0); HEMOGLOBIN. 7.8 g/dL (12.0-16.0); LYMPHOCYTES % 31.5 % (20.0-50.0); MEAN CORPUSCULAR HEMOGLOBIN 19.4 pg (28.0-32.0); MEAN CORPUSCULAR VOLUME 67.5 fL (81.0-99.0); MEAN PLATELET VOLUME 8.8 fl (7.4-10.4); MONOCYTES % 9.1 % (2.0-8.0); NEUTROPHILS % 58.1 % (40.0-76.0); PLATELET 239 x1000/uL (130-400); RED CELL DISTRIBUTION WIDTH 24.7 % (11.6-14.6)
[2020-04-25 20:39] LABS: CHLORIDE 112 mEq/L (98-107)
[2020-04-25 20:42] LABS: ETHANOL BLOOD 141 mg/dL
[2020-04-25 21:00] LABS: *AMPHETAMINES SCREEN URINE NEGATIVE (NEGATIVE); *BARBITURATES SCREEN URINE NEGATIVE (NEGATIVE); *COCAINE SCREEN URINE NEGATIVE (NEGATIVE); CANNABINOID URINE SCREEN NEGATIVE (NEGATIVE); METHADONE URINE SCREEN NEGATIVE (NEGATIVE)
[2020-04-25 21:01] LABS: OPIATES URINE SCREEN NEGATIVE (NEGATIVE); PHENCYCLIDINE URINE SCREEN NEGATIVE (NEGATIVE)
[2020-04-25 21:07] LABS: *BENZODIAZEPINES SCREEN URINE PRESUMTIVE POSITIVE (NEGATIVE)
[2020-04-25 21:29] LABS: PLATELET ESTIMATE NORMAL
[2020-04-25 22:23] VITALS: BP 112/80
== END 2020-04-25 22:25 | disposition home or self-care (01) ==
LOC: ER 17:59
DX: R56.9 Unspecified convulsions (principal); D64.9 Anemia, unspecified; F41.9 Anxiety disorder, unspecified; E11.9 Type 2 diabetes mellitus without complications; I10 Essential (primary) hypertension; Z86.73 Personal history of transient ischemic attack (TIA), and cerebral infarction without residual deficits; Z79.899 Other long term (current) drug therapy; Z88.0 Allergy status to penicillin; Z88.2 Allergy status to sulfonamides
CPT/HCPCS: 36415; 70450; 80053; 80305; 80320; 82962; 85025; 93005; 96365; 96375; 99285; J1200; J1953; J2060; J2270; J2405; J7030; Q0163; G0480

== ENCOUNTER 2020-06-07 22:05 | Emergency (ER) | payer OTHER ==
[~2020-06-07] VITALS: Ht 172.7 cm; Wt 90.0 kg
[2020-06-07] MEDS ORDERED: LEVETIRACETAM 1000MG PREMIX 100 ML IV ONE (22:30)
[2020-06-07 22:55] LABS: HEMATOCRIT. 31.3 % (36.0-48.0); HEMOGLOBIN. 9.3 g/dL (12.0-16.0); MEAN CORPUSCULAR VOLUME 67.5 fL (81.0-99.0); PLATELET 381 x1000/uL (130-400); RED BLOOD CELL COUNT 4.63 mill/uL (4.2-5.4); RED CELL DISTRIBUTION WIDTH 23.3 % (11.6-14.6)
[2020-06-07 23:02] LABS: CHLORIDE 111 mEq/L (98-107)
[2020-06-07 23:20] LABS: ETHANOL BLOOD 383 mg/dL
[2020-06-07 23:22] LABS: PLATELET ESTIMATE NORMAL
[2020-06-08] MEDS ORDERED: LEVETIRACETAM 500MG TABLET PO ONE (01:00)
[2020-06-08] MEDS ORDERED: DIPHENHYDRAMINE 25MG CAPSULE PO ONE (01:15)
[2020-06-08 01:20] VITALS: BP 131/83
== END 2020-06-08 01:35 | disposition home or self-care (01) ==
LOC: ER 22:05
DX: R56.9 Unspecified convulsions (principal); I10 Essential (primary) hypertension; E11.9 Type 2 diabetes mellitus without complications; J45.909 Unspecified asthma, uncomplicated; Z88.0 Allergy status to penicillin; Z88.6 Allergy status to analgesic agent; Z88.2 Allergy status to sulfonamides; Z88.9 Allergy status to unspecified drugs, medicaments and biological substances; Z88.5 Allergy status to narcotic agent; Z88.1 Allergy status to other antibiotic agents; Z91.018 Allergy to other foods; Z79.899 Other long term (current) drug therapy; Z98.890 Other specified postprocedural states
CPT/HCPCS: 36415; 80053; 80320; 85025; 93005; 99284; J1953; Q0163; Z7610; G0480

== ENCOUNTER 2020-07-15 07:29 | Emergency (ER) | payer OTHER ==
[~2020-07-15] VITALS: Ht 167.6 cm; Wt 84.0 kg
[2020-07-15] MEDS ORDERED: SODIUM CHLORIDE 0.9% 1,000 ML IV ONE (08:00)
[2020-07-15 09:08] LABS: CLARITY URINE CLOUDY (CLEAR); COLOR URINE YELLOW (YELLOW); KETONES URINE NEGATIVE (NEGATIVE); LEUKOCYTE ESTERASE URINE NEGATIVE (NEGATIVE); NITRITE URINE NEGATIVE (NEGATIVE); OCCULT BLOOD URINE NEGATIVE (NEGATIVE); PH URINE 5.5 (4.5-8.0); PROTEIN URINE 2+ (NEGATIVE); SPECIFIC GRAVITY URINE 1.021 (1.005-1.030); UROBILINOGEN URINE 0.2 E.U./dL (0.2-1.0)
[2020-07-15 09:33] LABS: *AMPHETAMINES SCREEN URINE NEGATIVE (NEGATIVE)
[2020-07-15 09:34] LABS: *BARBITURATES SCREEN URINE NEGATIVE (NEGATIVE); *COCAINE SCREEN URINE NEGATIVE (NEGATIVE); CANNABINOID URINE SCREEN NEGATIVE (NEGATIVE); METHADONE URINE SCREEN NEGATIVE (NEGATIVE); PHENCYCLIDINE URINE SCREEN NEGATIVE (NEGATIVE)
[2020-07-15 10:10] LABS: *BENZODIAZEPINES SCREEN URINE PRESUMTIVE POSITIVE (NEGATIVE); OPIATES URINE SCREEN PRESUMTIVE POSITIVE (NEGATIVE)
[2020-07-15 10:33] LABS: HEMOGLOBIN. 7.2 g/dL (12.0-16.0); MEAN CORPUSCULAR HEMOGLOBIN 21.9 pg (28.0-32.0); MEAN CORPUSCULAR VOLUME 75.8 fL (81.0-99.0); MEAN PLATELET VOLUME 7.4 fl (7.4-10.4); PLATELET 302 x1000/uL (130-400); RED CELL DISTRIBUTION WIDTH 28.1 % (11.6-14.6)
[2020-07-15 10:42] LABS: CHLORIDE 110 mEq/L (98-107)
[2020-07-15 10:45] LABS: ETHANOL BLOOD 128 mg/dL
[2020-07-15 11:23] VITALS: BP 111/65
[2020-07-15 13:12] LABS: PLATELET ESTIMATE NORMAL
== END 2020-07-15 12:44 | disposition home or self-care (01) ==
LOC: ER 07:29
DX: G40.909 Epilepsy, unspecified, not intractable, without status epilepticus (principal); I10 Essential (primary) hypertension; Z88.0 Allergy status to penicillin; Z91.018 Allergy to other foods; Z88.2 Allergy status to sulfonamides; Z88.6 Allergy status to analgesic agent; Z88.9 Allergy status to unspecified drugs, medicaments and biological substances; Z88.5 Allergy status to narcotic agent; Z88.8 Allergy status to other drugs, medicaments and biological substances; Z79.899 Other long term (current) drug therapy; Z98.890 Other specified postprocedural states
CPT/HCPCS: 36415; 70450; 71045; 76705; 80053; 80305; 80320; 81003; 81025; 82140; 83690; 85025; 93005; 99285; C1893; J7030; Z7610; G0480

== ENCOUNTER 2020-11-27 11:44 | Emergency (ER) | payer OTHER ==
[~2020-11-27] VITALS: Ht 165.1 cm; Wt 73.0 kg
[2020-11-27] MEDS ORDERED: ONDANSETRON HCL 4MG/2ML INJ IV STA (12:23)
[2020-11-27] MEDS ORDERED: METHYLPREDNISOLONE SOD SUCC 125 MG/2 ML VIAL IV ONE (12:30)
[2020-11-27] MEDS ORDERED: DIPHENHYDRAMINE 50MG/ML VIAL IV ONE (14:15)
[2020-11-27 14:29] LABS: CLARITY URINE CLEAR (CLEAR); COLOR URINE YELLOW (YELLOW); KETONES URINE NEGATIVE (NEGATIVE); LEUKOCYTE ESTERASE URINE NEGATIVE (NEGATIVE); NITRITE URINE NEGATIVE (NEGATIVE); OCCULT BLOOD URINE NEGATIVE (NEGATIVE); PH URINE 6.5 (4.5-8.0); PROTEIN URINE NEGATIVE (NEGATIVE); SPECIFIC GRAVITY URINE 1.004 (1.005-1.030); UROBILINOGEN URINE 0.2 E.U./dL (0.2-1.0)
[2020-11-27 14:34] LABS: BASOPHILS % 0.9 % (0.0-2.0); HEMATOCRIT. 23.9 % (36.0-48.0); HEMOGLOBIN. 7.9 g/dL (12.0-16.0); LYMPHOCYTES % 23.5 % (20.0-50.0); MEAN CORPUSCULAR HEMOGLOBIN 28.8 pg (28.0-32.0); MEAN CORPUSCULAR VOLUME 87.2 fL (81.0-99.0); MEAN PLATELET VOLUME 7.7 fl (7.4-10.4); MONOCYTES % 7.5 % (2.0-8.0); NEUTROPHILS % 65.1 % (40.0-76.0); PLATELET 392 x1000/uL (130-400); RED BLOOD CELL COUNT 2.74 mill/uL (4.2-5.4); RED CELL DISTRIBUTION WIDTH 28.5 % (11.6-14.6)
[2020-11-27 14:40] LABS: CHLORIDE 111 mEq/L (98-107)
[2020-11-27 14:42] LABS: PROTHROMBIN TIME 10.8 sec (9.6-11.0)
[2020-11-27 14:47] LABS: PLATELET ESTIMATE NORMAL
[2020-11-27 14:51] LABS: *AMPHETAMINES SCREEN URINE NEGATIVE (NEGATIVE); *BARBITURATES SCREEN URINE NEGATIVE (NEGATIVE); *COCAINE SCREEN URINE NEGATIVE (NEGATIVE)
[2020-11-27 14:52] LABS: CANNABINOID URINE SCREEN NEGATIVE (NEGATIVE); METHADONE URINE SCREEN NEGATIVE (NEGATIVE); OPIATES URINE SCREEN NEGATIVE (NEGATIVE); PHENCYCLIDINE URINE SCREEN NEGATIVE (NEGATIVE)
[2020-11-27 14:54] LABS: *BENZODIAZEPINES SCREEN URINE PRESUMTIVE POSITIVE (NEGATIVE)
[2020-11-27] MEDS ORDERED: P20 MT (15:54)
[2020-11-27 18:00] VITALS: BP 120/88
== END 2020-11-27 18:54 | disposition home or self-care (01) ==
LOC: ER 11:44
DX: T78.40XA Allergy, unspecified, initial encounter (principal); X58.XXXA Exposure to other specified factors, initial encounter; F41.9 Anxiety disorder, unspecified; I10 Essential (primary) hypertension; R56.9 Unspecified convulsions; M54.30 Sciatica, unspecified side; F17.210 Nicotine dependence, cigarettes, uncomplicated; Z88.0 Allergy status to penicillin; Z88.2 Allergy status to sulfonamides; Z88.4 Allergy status to anesthetic agent; Z88.6 Allergy status to analgesic agent; Z88.8 Allergy status to other drugs, medicaments and biological substances; Z91.018 Allergy to other foods
CPT/HCPCS: 36415; 73502; 80053; 80305; 81003; 85025; 85610; 96374; 96375; 99284; J1200; J2405; J2930